=== PATIENT | female | born 1925 | race Caucasian/White ===

== ENCOUNTER → 2016-06-11 | Outpatient (CLI) | payer MEDICARE ==
[~2016-06-11] MED LIST: 'XANAX0.25 MG PO; AMBIEN5 MG PO; ATENOLOL50 M1 PO; ATOXIMETIN-B1 CAP PO; BAYER ASPIRIN C81 MG PO; CALCIUM1 CAP PO; KLONOPIN0.5 MG PO; LIPITOR10 MG PO; LIPITOR20 MG PO; NORVASC5 MG PO; OSTEO-BI-FLEX 21 TAB PO; PLAVIX75 MG PO; TENORMIN50 MG PO; TRIAMTERENE/HCT1 CAP PO
== END | disposition home or self-care (01) ==
LOC: RAD 11:33
DX: R05 Cough (principal); I10 Essential (primary) hypertension

== ENCOUNTER → 2016-07-01 | Outpatient (CLI) | payer MEDICARE | END | disposition home or self-care (01) | LOC: RAD 11:36 | DX: M81.0 Age-related osteoporosis without current pathological fracture (principal); N95.9 Unspecified menopausal and perimenopausal disorder; M19.90 Unspecified osteoarthritis, unspecified site; R63.4 Abnormal weight loss ==

== ENCOUNTER 2016-07-28 11:38 | Inpatient (IN) | payer MEDICARE ==
[~2016-07-28] VITALS: Ht 157.4 cm; Wt 56.2 kg
--- NOTE | ~2016-07-28 | DS ---
[place], [place] DISCHARGE SUMMARY NAME: JACKLYN BURR UNIT #: [id number] ROOM: 421 DOCTOR: FELIX STOCK MD BIRTHDATE: [birth year] DOS: 07/31/2016 DISCHARGE DIAGNOSES: 1. The patient with colonic diverticulosis. 2. Urinary tract infection, treated with Ceftin. 3. Acute colitis, apparently viral with diarrhea resolved, adnexal mass unchanged from the past. 4. Benign essential hypertension. 5. Macular degeneration. 6. Mixed hyperlipidemia. 7. Pacemaker placement. 8. Coronary artery disease of the [place] vessels. 9. Generalized anxiety disorder. HOSPITAL COURSE: The patient was admitted by Dr. Malika Montanez when she presented with diarrhea, dehydration and was treated with hydration and was found to have urinary tract infection, although urine cultures did not grow any bacteria. The patient was treated with Ceftin. Acute colitis, apparently viral. The patient had diarrhea, which has resolved now. The patient underwent colonoscopy showing extensive diverticulosis, but the diarrhea has resolved and stool test for C. diff and stool cultures were negative. Old age and disability. The patient worked with physical therapy and she is walking without any assistance in the hallways today and would like to be discharged to home. Benign essential hypertension with controlled blood pressures. Coronary artery disease of the [place] vessels without any chest pains. Mixed hyperlipidemia treated with Lipitor. Generalized anxiety disorder for which patient takes clonazepam as needed. DISCHARGE MANAGEMENT: Clonazepam 0.5 mg at bedtime p.r.n., cefuroxime 250 mg b.i.d. for 5 days, natural tears both eyes t.i.d., amlodipine 5 mg a day, aspirin 81 mg a day, atenolol 50 mg a day, Lipitor 40 mg a day. Follow up with Dr. James Holloway, her PCP within a week. [place], [place] DISCHARGE SUMMARY NAME: JACKLYN BURR UNIT #: [id number] ROOM: 421 DOCTOR: FELIX STOCK MD BIRTHDATE: [birth year] FELIX STOCK MD CM:DISCHARG [id number] FELIX STOCK MD 07/31/16 1737 interface
--- NOTE | ~2016-07-28 | WRIGHTHP ---
[place], [place] PATIENT HISTORY AND PHYSICAL EXAM NAME: JACKLYN BURR [facility] #: [id number] UNIT #: [id number] ROOM: 421 DOCTOR: KENNETH HERNANDEZ MD BIRTHDATE: [birth year] DOS: 07/28/2016 HISTORY OF PRESENT ILLNESS: The patient is 89 years old, not known to me. The patient was brought in from Dr. Holloway's office. The patient states that she has had a cough for the last couple of days. She also has had diarrhea, having 4-5 bowel movements for the last 3-4 days, she has felt tired, so Dr. Holloway saw her in the office and told her to go to the hospital. She was evaluated in the ER, was admitted with diagnosis of prerenal azotemia, possibly UTI. She does not have any complaints this morning. She feels better than yesterday. Denies any chest pains or palpitations, does not have any fever or chills. She does have a slight cough, but is unable to cough up any mucus. PAST MEDICAL HISTORY: Significant for: 1. Last hospitalization in 02/2016 with acute renal failure to an UTI. 2. Benign hypertension. 3. Macular degeneration. 4. Mixed hyperlipidemia. 5. History of pacemaker placement. 6. Coronary artery disease of [place] coronaries. 7. Generalized anxiety disorder. SOCIAL HISTORY: She lives at the [facility]. She had 2 children, one child was killed in an auto accident, one daughter who lives in town. PHYSICAL EXAMINATION: GENERAL: The patient is awake and alert and oriented, appears to be slightly anxious this morning. VITAL SIGNS: Graphic trend shows a pressure 134/56, pulse of 72, respirations 20, temperature 97.8. LUNGS: Diminished breath sounds. No wheezes, rales or rhonchi heard. HEART: Regular. ABDOMEN: Obese, soft, nontender. EXTREMITIES: Without any edema. CT of the abdomen and pelvis was unremarkable except for the left adnexal cyst which is unchanged. LABORATORY DATA: Lactic acid was normal. White blood cell count is normal at 5.4, hemoglobin and hematocrit was normal. Comprehensive shows glucose of 92, BUN 24, creatinine 1.1, GFR 46. Electrolytes were normal. ASSESSMENT AND PLAN: 1. Acute kidney injury, possibly from prerenal azotemia and dehydration. The patient is started on IV fluids. 2. Tiredness with possibility of urinary tract infection was raised, Levaquin was ordered and the patient is ordered a urine culture, which is pending. Routine labs will be ordered. 3. Adult failure to thrive. I believe the patient is developing some cognitive difficulties and may really need to be placed. We will get PT, OT and social [place], [place] PATIENT HISTORY AND PHYSICAL EXAM NAME: JACKLYN BURR UNIT #: [id number] ROOM: 421 DOCTOR: KENNETH HERNANDEZ MD BIRTHDATE: [birth year] service consultation. KENNETH HERNANDEZ MD CM:HISPHYS:PATIENT HISTORY AND PHYSICAL EXAMINATION 1342 1727 KENNETH HERNANDEZ MD 07/29/16 1726 interface
--- NOTE | ~2016-07-28 | PR ---
[place], [place] PROGRESS NOTE [id number] UNIT #: [id number] ROOM: 421 DOCTOR: KENNETH HERNANDEZ MD BIRTHDATE: [birth year] DOS: 07/30/2016 SUBJECTIVE: The patient is starting to complain of some diarrhea. The patient states that she has had diarrheal stool with flecks of undigested food in it. As per the nursing staff and aide, they have not noticed any such diarrheal bowel movements since she arrived here yesterday morning. OBJECTIVE EXAMINATION: GENERAL: She is awake and alert and oriented. VITAL SIGNS: Graphic trend shows a pressure 134/61, pulse of 68, respirations 18, temperature 97.9. LUNGS: Clear. HEART: Regular. ABDOMEN: Obese, soft, nontender. EXTREMITIES: Without any edema. LABORATORY DATA: Normal. Urine culture shows no bacterial growth, which is final. ASSESSMENT AND PLAN: 1. Adult failure to thrive. The patient is getting physical therapy and may benefit from PT as an outpatient. 2. Adnexal cystic mass which is unchanged from previous findings. The patient will need further evaluation as outpatient to make sure this is not an ovarian cyst. Vaginal ultrasound which will be a good idea in this patient. 3. Diarrhea of unknown etiology. Clostridium difficile titers and stool for culture will be ordered. A consultation with Dr. Davis obtained. KENNETH HERNANDEZ MD CM:PNTRANS [id number] KENNETH HERNANDEZ MD 07/30/16 2300 interface
--- NOTE | ~2016-07-28 | CON ---
[place], [place] REPORT OF CONSULTATION NAME: JACKLYN BURR UNIT #: [id number] ROOM: 421 DOCTOR: KAIDEN HAMWANDER BIRTHDATE: [birth year] DOS: 07/30/2016 HISTORY OF PRESENT ILLNESS: This is an 89-year-old patient who has presented with multiple medical problems, among which has been diarrhea, change in bowel habits. Family as well as physicians have been concerned. I have been asked for a colonoscopic assessment of the patient here. White blood cell was 5, H and H of 12 and 36. Urinalysis unremarkable. Lactic acid 1.0. BUN and creatinine 24 and 1.1. Electrolytes balanced. Liver function tests normal. Troponin normal. Chest x-ray, no acute pulmonary disease. CT scan of the abdomen and pelvis, no acute CT findings. Urine cultures negative. Thyroxine 10.4, TSH 2.8. Blood cultures negative. C. diff negative. PAST MEDICAL HISTORY: Associated with hypercholesterolemia, hypertension, anxiety. ALLERGIES: CELEXA AND METHYLDOPA. SOCIAL HISTORY: Nonsmoker, nonalcohol consumer. FAMILY HISTORY: Noncontributory. PAST SURGICAL HISTORY: Associated with pacemaker. REVIEW OF SYSTEMS: HEENT: Denies double vision, blurred vision. RESPIRATORY: Denies shortness of breath. CARDIOVASCULAR: Denies chest pain. DIGESTIVE SYSTEM: Diarrhea. PHYSICAL EXAMINATION: GENERAL: Frail patient. HEENT: Head normocephalic, nontraumatic. Mouth and buccal mucosa benign. NECK: Supple, no thyromegaly. CHEST: Symmetric anatomy, equal expansion. No wheezes, no rhonchi. HEART: Normal sinus rhythm, no gallop, no murmur. ABDOMEN: Soft, no hepato-organomegaly. Bowel sounds present. EXTREMITIES: No cyanosis, no pedal edema. NEUROLOGICAL: Alert, oriented to time, place and person. IMPRESSION: Diarrhea, change in bowel habits. Family and patient requesting evaluation, therefore organized colonoscopy. There is also a 3.8 cm left adnexal cyst that has been recognized on the record. Other adjunctive diagnoses as outlined in past medical and surgical history. [place], [place] REPORT OF CONSULTATION NAME: JACKLYN BURR UNIT #: [id number] ROOM: 421 DOCTOR: KAIDEN HAM,WANDER BIRTHDATE: [birth year] WANDER RICHEY MD CM:CONSTR:REPORT OF CONSULTATION 1504 07/31/16 0104 interface
--- NOTE | ~2016-07-28 | O ---
[place], [place] OPERATIVE NOTE NAME: JACKLYN BURR UNIT #: [id number] ROOM: 421 DOCTOR: KAIDEN HAM,WANDER BIRTHDATE: [birth year] DOS: INDICATION: The patient has presented with diarrhea, undergoing investigation. PROCEDURE: Today's procedure part of investigation is colonoscopy. PREMEDICATION: Versed and Diprivan. SCOPE: Olympus forward-viewing colonoscope 10L video. REPORT: After putting the patient in the left lateral position and after application of lubricant to the scope, the scope was introduced. Thereafter, under direct visualization, I advanced through the length of colon without difficulty. Colon mucosa and vascularity carefully examined. Severe diverticulosis of sigmoid colon was appreciated. Base of cecum contains stool; however, scope was withdrawn. The patient extubated, tolerated procedure well. IMPRESSION: Severe diverticulosis in sigmoid colon. PLAN: Resumption of feeding and clinical reassessment. WANDER RICHEY MD CM:OPRECORD:OPERATIVE NOTE 1522 1730 WANDER RICHEY MD 07/30/16 1729 interface
[2016-07-28 11:54] VITALS: BP 134/90
[2016-07-28 12:32] LABS: BILIRUBIN NEGATIVE (NEGATIVE); BLOOD NEGATIVE (NEGATIVE); CLARITY CLEAR (CLEAR); COLOR YELLOW (YELLOW); GLUCOSE NEGATIVE (NEGATIVE); KETONE NEGATIVE (NEGATIVE); LEUKO ESTERASE TRACE (NEGATIVE); NITRITE NEGATIVE (NEGATIVE); PROTEIN NEGATIVE (NEGATIVE); SPECIFIC GRAVITY <= 1.005 (1.005-1.030); UROBILINOGEN 0.2 E.U./dl (0.2-1.0)
[2016-07-28 12:41] LABS: BASO % 0.6 % (0.0-1.0); EOS # 0.1 10*3/uL (0.0-0.4); EOS % 1.9 % (1.0-4.0); HEMATOCRIT 36.2 % (37.0-47.0); HEMOGLOBIN 12.2 g/dl (12.0-16.0); LYMPH # 1.3 10*3/uL (1.3-4.4); LYMPH % 23.7 % (27.0-41.0); MEAN CELL VOLUME 90.5 fl (81.0-99.0); MEAN CORPUSCULAR HGB 30.5 pg (27.0-31.0); MEAN CORPUSCULAR HGB CONC 33.7 g/dl (33.0-37.0); MEAN PLATELET VOLUME 10.7 fl (9.6-12.3); MONO # 0.5 10*3/uL (0.1-1.0); MONO % 8.5 % (3.0-9.0); NEUT # 3.5 10*3/uL (2.3-7.9); NEUT % 65.1 % (47.0-73.0); PLATELET COUNT AUTOMATED 195 10*3/uL (130-400); RED CELL DISTRI WIDTH 13.1 % (0-14.5); WHITE BLOOD COUNT 5.4 10*3/uL (4.8-10.8)
[2016-07-28 12:42] LABS: BACTERIA TRACE; URINE REFLEX COMMENT YES (NO)
[2016-07-28 12:57] LABS: ALBUMIN 3.9 gm/dl (3.1-4.5); ALKALINE PHOSPHATASE 105 U/L (45-117); BILIRUBIN, TOTAL 0.6 mg/dl (0.2-1.0); BUN 24 mg/dl (7-24); CARBON DIOXIDE 28 mmol/L (21-32); CHLORIDE 97 mmol/L (98-107); EST GLOM FILT AFRICAN AMERICAN 56 ml/min; GLUCOSE 92 mg/dL (65-99); POTASSIUM 3.9 mmol/L (3.5-5.1); SGOT/AST 26 IU/L (3-35); SGPT/ALT 27 U/L (12-78); SODIUM 137 mmol/L (136-145); TOTAL PROTEIN 7.8 gm/dL (6.4-8.2); TROPONIN I < 0.015 ng/ml (<0.045)
[2016-07-28 17:30] VITALS: BP 138/90
[2016-07-28 20:00] VITALS: BP 149/54
[2016-07-28] MEDS ORDERED: REFRESH 1 ML1 ML OPH (21:28)
[2016-07-29] VITALS: BP 117/58
[2016-07-29 07:52] LABS: BUN 18 mg/dl (7-24); CARBON DIOXIDE 27 mmol/L (21-32); CHLORIDE 103 mmol/L (98-107); EST GLOM FILT AFRICAN AMERICAN > 60 ml/min; GLUCOSE 90 mg/dL (65-99); POTASSIUM 3.5 mmol/L (3.5-5.1); SODIUM 142 mmol/L (136-145)
[2016-07-29 08:00] VITALS: BP 152/68
[2016-07-29 12:00] VITALS: BP 134/56
[2016-07-29 16:03] VITALS: BP 141/56
[2016-07-29 20:00] VITALS: BP 134/61
[2016-07-30] VITALS (8 sets, daily range): BP systolic 109–154; BP diastolic 49–72
[2016-07-30 09:26] LABS: THYROXINE (T4) TOTAL 10.4 ug/dl (4.8-13.9)
[2016-07-30 09:31] LABS: THYROID STIM HORMONE (HS) 2.85 uIU/ml (0.358-4.75)
[2016-07-31 08:00] VITALS: BP 154/56
[2016-07-31 12:00] VITALS: BP 156/68; BP 158/64
[2016-07-31 16:00] VITALS: BP 145/50
[2016-07-31] MEDS ORDERED: CEFUROXIME AXE250 MG PO (16:14)
== END 2016-07-31 16:46 | disposition home or self-care (01) | DRG 683 ==
LOC: ED 11:38 → 4E 15:29 → EDHOLD 15:29 → 4E 16:13
PROVIDERS: Internal Medicine; Registered Nurse
PROC: 0DJD8ZZ Inspection of Lower Intestinal Tract, Via Natural or Artificial Opening Endoscopic (ICD-10-PCS; principal; 2016-07-30)
DX: N17.9 Acute kidney failure, unspecified (principal); N30.00 Acute cystitis without hematuria; E27.8 Other specified disorders of adrenal gland; E86.0 Dehydration; K57.30 Diverticulosis of large intestine without perforation or abscess without bleeding; A08.4 Viral intestinal infection, unspecified; I10 Essential (primary) hypertension; H35.30 Unspecified macular degeneration; E78.2 Mixed hyperlipidemia; I25.10 Atherosclerotic heart disease of native coronary artery without angina pectoris; F41.1 Generalized anxiety disorder; R62.7 Adult failure to thrive; E78.00 Pure hypercholesterolemia, unspecified; Z95.0 Presence of cardiac pacemaker; Z88.8 Allergy status to other drugs, medicaments and biological substances; Z98.49 Cataract extraction status, unspecified eye; Z82.49 Family history of ischemic heart disease and other diseases of the circulatory system; Z80.8 Family history of malignant neoplasm of other organs or systems; Z87.440 Personal history of urinary (tract) infections

== ENCOUNTER 2016-12-12 19:04 | Emergency (ER) | payer MEDICARE ==
[~2016-12-12] VITALS: Ht 162.5 cm; Wt 54.4 kg
[~2016-12-12 19:04] MED LIST changes: +CEFUROXIME AXE250 MG PO; +REFRESH 1 ML1 ML OPH
[2016-12-12 20:52] LABS: BASO % 0.2 % (0.0-1.0); EOS % 0.1 % (1.0-4.0); HEMATOCRIT 32.3 % (37.0-47.0); HEMOGLOBIN 10.4 g/dl (12.0-16.0); LYMPH # 0.7 10*3/uL (1.3-4.4); LYMPH % 5.5 % (27.0-41.0); MEAN CELL VOLUME 94.4 fl (81.0-99.0); MEAN CORPUSCULAR HGB 30.4 pg (27.0-31.0); MEAN CORPUSCULAR HGB CONC 32.2 g/dl (33.0-37.0); MEAN PLATELET VOLUME 10.9 fl (9.6-12.3); MONO # 0.6 10*3/uL (0.1-1.0); MONO % 4.8 % (3.0-9.0); NEUT # 10.9 10*3/uL (2.3-7.9); NEUT % 88.9 % (47.0-73.0); PLATELET COUNT AUTOMATED 168 10*3/uL (130-400); RED BLOOD COUNT 3.42 10*6/uL (4.10-5.10); WHITE BLOOD COUNT 12.3 10*3/uL (4.8-10.8)
[2016-12-12 21:03] LABS: ACT PARTIAL THROMBO TIME 33.9 SECONDS (20.8-31.5); INTERNATIONAL NORM RATIO 1.1 (2.0-3.5)
[2016-12-12 21:06] LABS: ALBUMIN 3.4 gm/dl (3.1-4.5); CREATININE 1.06 mg/dL (0.55-1.02); POTASSIUM 4.2 mmol/L (3.5-5.1); TOTAL PROTEIN 6.9 gm/dL (6.4-8.2)
== END 2016-12-13 | disposition short-term general hospital (02) ==
LOC: ED 19:04
PROVIDERS: Emergency Medicine Emergency Medical Services
DX: S72.091A Other fracture of head and neck of right femur, initial encounter for closed fracture (principal); I25.10 Atherosclerotic heart disease of native coronary artery without angina pectoris; I10 Essential (primary) hypertension; E78.5 Hyperlipidemia, unspecified; Z88.8 Allergy status to other drugs, medicaments and biological substances; Z79.899 Other long term (current) drug therapy; Z79.82 Long term (current) use of aspirin; Z96.89 Presence of other specified functional implants; W06.XXXA Fall from bed, initial encounter; Y93.89 Activity, other specified; Y92.89 Other specified places as the place of occurrence of the external cause; Y99.8 Other external cause status

== ENCOUNTER 2017-04-22 12:22 | Inpatient (IN) | payer MEDICARE ==
[2017-04-22] VITALS (8 sets, daily range): BP systolic 114–171; BP diastolic 50–84
[~2017-04-22] VITALS: Wt 56.3 kg
[2017-04-22] MEDS ORDERED: MELATONIN3 MG PO (12:45)
[2017-04-22] MEDS ORDERED: POTASSIUM CHLO20 ME3 PO (12:46)
[2017-04-22] MEDS ORDERED: PRESERVISION A1 EAC1 PO (12:46)
[2017-04-22 12:47] LABS: BASO % 0.8 % (0.0-1.0); EOS # 0.3 10*3/uL (0.0-0.4); EOS % 4.9 % (1.0-4.0); HEMOGLOBIN 12.2 g/dl (12.0-16.0); LYMPH # 1.5 10*3/uL (1.3-4.4); MEAN CELL VOLUME 90.3 fl (81.0-99.0); MEAN CORPUSCULAR HGB CONC 32.1 g/dl (33.0-37.0); MEAN PLATELET VOLUME 11.1 fl (9.6-12.3); MONO # 0.5 10*3/uL (0.1-1.0); MONO % 8.9 % (3.0-9.0); NEUT # 2.8 10*3/uL (2.3-7.9); NEUT % 55.2 % (47.0-73.0); PLATELET COUNT AUTOMATED 156 10*3/uL (130-400); RED BLOOD COUNT 4.21 10*6/uL (4.10-5.10); RED CELL DISTRI WIDTH 14.4 % (0-14.5); WHITE BLOOD COUNT 5.1 10*3/uL (4.8-10.8)
[2017-04-22] MEDS ORDERED: MILK OF MA400 MG/5 M PO (12:47)
[2017-04-22 13:09] LABS: ALBUMIN 3.7 gm/dl (3.1-4.5); ALKALINE PHOSPHATASE 198 U/L (45-117); BUN 20 mg/dl (7-24); CHLORIDE 101 mmol/L (98-107); CREATININE 0.96 mg/dL (0.55-1.02); POTASSIUM 4.3 mmol/L (3.5-5.1); SGOT/AST 28 IU/L (3-35); SGPT/ALT 33 U/L (12-78); SODIUM 136 mmol/L (136-145); TOTAL PROTEIN 7.9 gm/dL (6.4-8.2)
[2017-04-22 13:12] LABS: TROPONIN I < 0.015 ng/ml (<0.045)
[2017-04-22 13:15] LABS: BILIRUBIN NEGATIVE (NEGATIVE); BLOOD TRACE-INTACT (NEGATIVE); CLARITY CLEAR (CLEAR); COLOR YELLOW (YELLOW); GLUCOSE NEGATIVE (NEGATIVE); KETONE NEGATIVE (NEGATIVE); LEUKO ESTERASE NEGATIVE (NEGATIVE); NITRITE NEGATIVE (NEGATIVE); SPECIFIC GRAVITY <= 1.005 (1.005-1.030); UROBILINOGEN 0.2 E.U./dl (0.2-1.0)
[2017-04-22 13:21] LABS: BACTERIA 1+; EPITHELIAL CELLS 0-2; WBC 0-2 wbc/hpf (0-5)
[2017-04-22] MEDS ORDERED: HEALTHYLAX17 GM GT (16:43)
[2017-04-23] VITALS: BP 145/53
[2017-04-23 06:35] LABS: BASO % 0.7 % (0.0-1.0); EOS # 0.1 10*3/uL (0.0-0.4); EOS % 3.2 % (1.0-4.0); LYMPH # 1.1 10*3/uL (1.3-4.4); LYMPH % 25.3 % (27.0-41.0); MEAN CELL VOLUME 90.4 fl (81.0-99.0); MEAN CORPUSCULAR HGB 29.3 pg (27.0-31.0); MEAN CORPUSCULAR HGB CONC 32.4 g/dl (33.0-37.0); MEAN PLATELET VOLUME 11.8 fl (9.6-12.3); MONO # 0.5 10*3/uL (0.1-1.0); MONO % 10.4 % (3.0-9.0); NEUT # 2.7 10*3/uL (2.3-7.9); NEUT % 60.4 % (47.0-73.0); PLATELET COUNT AUTOMATED 144 10*3/uL (130-400); RED BLOOD COUNT 3.76 10*6/uL (4.10-5.10); RED CELL DISTRI WIDTH 14.6 % (0-14.5); WHITE BLOOD COUNT 4.4 10*3/uL (4.8-10.8)
[2017-04-23 07:03] LABS: BUN 15 mg/dl (7-24); CHLORIDE 104 mmol/L (98-107); CHOLESTEROL 110 mg/dL (<200); CREATININE 0.89 mg/dL (0.55-1.02); PHOSPHOROUS 2.8 mg/dL (2.5-4.9); POTASSIUM 3.9 mmol/L (3.5-5.1); SODIUM 138 mmol/L (136-145); TRIGLYCERIDES 106 mg/dl (<150); VLDL CHOLESTEROL 21 mg/dL (6-40)
[2017-04-23 07:12] LABS: HDL CHOLESTEROL 41 mg/dl (40-60); LDL CHOLESTEROL 48 mg/dL (9-159)
[2017-04-23 07:54] VITALS: BP 149/63
[2017-04-23 08:31] LABS: VITAMIN D, 25-HYDROXY 13.7 ng/mL (30-100)
[2017-04-23 12:00] VITALS: BP 103/81
[2017-04-23 16:00] VITALS: BP 145/50
== END 2017-04-23 18:25 | disposition home or self-care (01) | DRG 72 ==
LOC: ED 12:22 → 5E 14:13 → EDHOLD 14:13 → 5E 14:37
PROVIDERS: Internal Medicine Nephrology; Nurse Practitioner Family
DX: G93.41 Metabolic encephalopathy (principal); L89.311 Pressure ulcer of right buttock, stage 1; D72.1 Eosinophilia; L89.321 Pressure ulcer of left buttock, stage 1; I44.1 Atrioventricular block, second degree; F03.90 Unspecified dementia, unspecified severity, without behavioral disturbance, psychotic disturbance, mood disturbance, and anxiety; I44.7 Left bundle-branch block, unspecified; K57.90 Diverticulosis of intestine, part unspecified, without perforation or abscess without bleeding; I12.9 Hypertensive chronic kidney disease with stage 1 through stage 4 chronic kidney disease, or unspecified chronic kidney disease; N18.3 Chronic kidney disease, stage 3 (moderate); E78.5 Hyperlipidemia, unspecified; F41.1 Generalized anxiety disorder; I25.10 Atherosclerotic heart disease of native coronary artery without angina pectoris; H35.30 Unspecified macular degeneration; Z98.49 Cataract extraction status, unspecified eye; Z95.0 Presence of cardiac pacemaker; Z88.9 Allergy status to unspecified drugs, medicaments and biological substances; Z87.81 Personal history of (healed) traumatic fracture; Z82.49 Family history of ischemic heart disease and other diseases of the circulatory system; Z80.59 Family history of malignant neoplasm of other urinary tract organ